=== PATIENT | male | born 2000 | race Caucasian/White ===

== ENCOUNTER 2023-05-18 20:09 | Emergency (ER) | payer OTHER ==
[2023-05-18] MEDS ORDERED: Bupivacaine 0.25% 10 ML VIAL ONE (20:54)
[2023-05-18] MEDS ORDERED: Boostrix 0.5 ML (Tdap) VIAL (>/=7 yrs of age) ONE (20:54)
[2023-05-18] MEDS ORDERED: Lidocaine 2% PF 5 ML VIAL ONE (20:54)
== END 2023-05-18 21:33 | disposition home or self-care (01) ==
LOC: ERS 20:09
DX: S61.012A Laceration without foreign body of left thumb without damage to nail, initial encounter (principal); W26.0XXA Contact with knife, initial encounter; Y93.G3 Activity, cooking and baking
CPT/HCPCS: 12001; 90471; 90715; J2001; S0020

== ENCOUNTER 2023-05-28 13:22 | Emergency (ER) | payer OTHER | END 2023-05-28 14:44 | disposition home or self-care (01) | LOC: ERS 13:22 | DX: S61.012D Laceration without foreign body of left thumb without damage to nail, subsequent encounter (principal); H60.92 Unspecified otitis externa, left ear; H73.92 Unspecified disorder of tympanic membrane, left ear; I10 Essential (primary) hypertension; W26.0XXD Contact with knife, subsequent encounter; Y93.G3 Activity, cooking and baking | CPT/HCPCS: 99282 ==